=== PATIENT | male | born 1985 | race Caucasian/White ===

== ENCOUNTER 2016-05-18 08:52 | Emergency (ER) | payer BC, OTHER ==
[2016-05-18 09:51] VITALS: BP 115/88
--- NOTE | 2016-05-18 10:55 | UC ---
Respiratory Complaint HPI - HPI Summary HPI Summary: 1 WEEK OF COUGH AND CONGESTION. HAS NOTICED BLOOD IN SPUTUM. SOMETIMES BRIGHT RED, SOMETIMES DARKER. MORE THAN JUST STREAKING. HAD SIMILAR SX ABOUT A MONTH AGO AND PCP TREATED WITH DOXY. CXR WAS RECOMMENDED BUT PT DECLINED DUE TO INSURANCE DIFFICULTIES. SX RESOLVED BUT NOW RETURNED. NO FEVER. DOES HAVE SOME SOB WITH EXERTION. 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 - History of Current Complaint Chief Complaint: UCRespiratory Stated Complaint: COUGHING UP BLOOD Time Seen by Provider: 05/18/16 10:44 Hx Obtained From: Patient Onset/Duration: Gradual Onset, Lasting Days, Still Present Timing: Constant Severity Initially: Moderate Severity Currently: Moderate Pain Intensity: 0 Pain Scale Used: 0-10 Numeric Character: Cough: Productive Aggravating Factors: Nothing Alleviating Factors: Nothing Associated Signs And Symptoms: Positive: Dyspnea, Hemoptysis, URI, Nasal Congestion. Negative: Fever, Chills, Pleuritic Chest Pain, Wheezing, Dizziness , Calf Pain, Calf Swelling, Edema, Hoarseness, Sinus Discomfort - Allergies/Home Medications Allergies/Adverse Reactions: Allergies Allergy/AdvReac Type Severity Reaction Status Date / Time Amoxicillin [From Augmentin] Allergy Mild Itching Verified 05/18/16 09:44 Cefaclor [From Ceclor] Allergy Mild Itching Verified 05/18/16 09:44 Clavulanic Acid Allergy Mild Itching Verified 05/18/16 09:44 [From Augmentin] Home Medications: Home Medications Zolpidem Tartrate [Ambien] 5 mg PO DAILY 05/18/16 [History Confirmed 05/18/16] PMH/Surg Hx/FS Hx/Imm Hx Endocrine History Of: Denies: Diabetes, Thyroid Disease Cardiovascular History Of: Reports: Cardiac Disorders Denies: Hypertension, Congestive Heart Failure Respiratory History Of: Reports: Asthma Denies: COPD GI/ History Of: Denies: Ulcer, Renal Disease - Surgical History Surgical History: Yes Surgery Procedure, Year, and Place: Open Heart surgery at 5 days and 14 years old and 2 or more angioplasties (unsure of the year). - Family History Known Family History: Negative: Blood Disorder Family History: NON CONTRIBUTORY - Social History Alcohol Use: None Alcohol Amount: 6-pack Substance Use Type: None Substance Use Comment - Amount & Last Used: every other day Smoking Status (MU): Former Smoker Type: Cigarettes, Smokeless Tobacco Amount Used/How Often: 2 packs weekly Length of Time of Smoking/Using Tobacco: since age 14 Have You Smoked in the Last Year: No - Immunization History Most Recent Influenza Vaccination: NEVER Most Recent Tetanus Shot: UTD Most Recent Pneumonia Vaccination: never Review of Systems Constitutional: Negative Respiratory: Shortness Of Breath, Cough, Other - HEMOPTYSIS Cardiovascular: Negative Gastrointestinal: Negative All Other Systems Reviewed And Are Negative: Yes Physical Exam Triage Information Reviewed: Yes Appearance: Well-Appearing, No Pain Distress, Well-Nourished Vital Signs: Initial Vital Signs Temp 98.2 F 05/18/16 09:46 Pulse 80 05/18/16 09:46 Resp 16 05/18/16 09:46 BP 115/88 05/18/16 09:46 Pulse Ox 97 05/18/16 09:46 Vital Signs Reviewed: Yes Eyes: Positive: Conjunctiva Clear ENT: Positive: Hearing grossly normal, Pharynx normal, TMs normal Neck: Positive: Supple, Nontender, No Lymphadenopathy Respiratory: Positive: Lungs clear, No respiratory distress, No accessory muscle use, Decreased breath sounds - LEFT LUNG Cardiovascular Exam: Normal Abdomen Description: Positive: Soft Musculoskeletal: Positive: No Edema Neurological: Positive: Alert Psychological: Positive: Age Appropriate Behavior Skin: Negative: rashes UC Diagnostic Evaluation - Laboratory O2 Sat by Pulse Oximetry: 97 - Radiology Xray Interpretation: Positive (See Comments) - LINEAR ATELECTASIS VERSUS PLEUROPARENCHYMAL SCARRING OF THE RIGHT UPPER LOBE Radiology Interpretation Completed By: Radiologist Respiratory Course/Dx - Differential Dx/Diagnosis Provider Diagnoses: 1. HEMOPTYSIS. 2. ACUTE BRONCHITIS Discharge - Discharge Plan Condition: Stable Disposition: HOME Prescriptions: Levofloxacin 750 mg PO DAILY #10 tab Patient Education Materials: Acute Bronchitis (ED), Hemoptysis (ED) Forms: *Work Release Referrals: Margarita Correa NP [Primary Care Provider] - 1 Week Additional Instructions: CHEST XRAY SHOWS SOME POSSIBLE SCARRING TODAY. WILL COVER WITH ANTIBIOTICS GIVEN YOUR SYMPTOMS AND UNDERLYING LUNG PATHOLOGY. FOLLOW-UP WITH YOUR PCP IN A WEEK. YOU MAY BENEFIT FROM CT SCAN IF YOUR SYMPTOMS PERSIST. GO TO THE ER WITHOUT FAIL IF YOU DEVELOP WORSENING SHORTNESS OF BREATH, CHEST PAIN, FEVER, PERSISTENT BLOOD IN SPUTUM OR ANY OTHER CONCERNING SYMPTOMS.
--- NOTE | 2016-05-18 11:24 | RAD ---
HISTORY: Shortness of breath, hemoptysis COMPARISONS: October 26, 2015 VIEWS: 2: Frontal dual-energy and lateral views of the chest. FINDINGS: CARDIOMEDIASTINAL SILHOUETTE: The cardiomediastinal silhouette is normal. YOLETTE: The yolette are normal. PLEURA: The costophrenic angles are sharp. No pleural abnormalities are noted. LUNG PARENCHYMA: There is linear opacification of the right upper lobe. ABDOMEN: The upper abdomen is clear. There is no subphrenic gas. BONES AND SOFT TISSUES: The patient is status post median sternotomy. OTHER: None. IMPRESSION: LINEAR ATELECTASIS VERSUS PLEUROPARENCHYMAL SCARRING OF THE RIGHT UPPER LOBE.
== END 2016-05-18 11:40 | disposition home or self-care (01) ==
LOC: UCEAST 08:52
DX: R04.2 Hemoptysis (principal); J20.9 Acute bronchitis, unspecified; Z87.891 Personal history of nicotine dependence; Z88.1 Allergy status to other antibiotic agents; Z88.8 Allergy status to other drugs, medicaments and biological substances
CPT/HCPCS: 71020; 99212; G0463